=== PATIENT | female | born 1965 | race Caucasian/White ===

== ENCOUNTER 2018-02-17 16:55 | Emergency (ER) | payer MEDICAID ==
[~2018-02-17] VITALS: Ht 157.5 cm; Wt 76.2 kg
[2018-02-17 17:15] VITALS: Ht 157.5 cm; Wt 76.2 kg
[2018-02-17 20:27] VITALS: BP 161/84
== END 2018-02-17 20:27 | disposition home or self-care (01) ==
LOC: ED 16:55
DX: L02.214 Cutaneous abscess of groin (principal); N83.202 Unspecified ovarian cyst, left side; I10 Essential (primary) hypertension; E11.9 Type 2 diabetes mellitus without complications
CPT/HCPCS: 82962; J1815

== ENCOUNTER 2018-03-06 14:41 | Emergency (ER) | payer MEDICAID ==
[~2018-03-06] VITALS: Ht 157.5 cm; Wt 75.7 kg
[2018-03-06 15:03] VITALS: Ht 157.5 cm; Wt 75.7 kg
[2018-03-06 16:30] VITALS: BP 175/93
== END 2018-03-06 16:30 | disposition home or self-care (01) ==
LOC: ED 14:41
DX: N76.4 Abscess of vulva (principal)
CPT/HCPCS: J2001

== ENCOUNTER 2018-03-11 12:31 | Emergency (ER) | payer MEDICAID ==
[~2018-03-11] VITALS: Ht 154.9 cm; Wt 77.3 kg
[2018-03-11 12:42] VITALS: Ht 154.9 cm; Wt 77.3 kg
[2018-03-11 13:57] VITALS: BP 159/73
== END 2018-03-11 13:57 | disposition home or self-care (01) ==
LOC: ED 12:31
DX: Z02.79 Encounter for issue of other medical certificate (principal); I10 Essential (primary) hypertension; E11.9 Type 2 diabetes mellitus without complications

== ENCOUNTER 2018-07-18 19:40 | Emergency (ER) | payer OTHER ==
[~2018-07-18] VITALS: Ht 160 cm; Wt 75.3 kg
[2018-07-18 19:49] VITALS: Ht 160 cm; Wt 75.3 kg
[2018-07-18 23:24] VITALS: BP 145/92
== END 2018-07-18 23:24 | disposition home or self-care (01) ==
LOC: ED 19:40
DX: N76.0 Acute vaginitis (principal); I10 Essential (primary) hypertension; E11.9 Type 2 diabetes mellitus without complications; E78.00 Pure hypercholesterolemia, unspecified
CPT/HCPCS: J0696; J2001

== ENCOUNTER 2018-07-20 19:01 | Emergency (ER) | payer OTHER ==
[~2018-07-20] VITALS: Ht 160 cm; Wt 74.4 kg
[2018-07-20 19:18] VITALS: Ht 160 cm; Wt 74.4 kg
[2018-07-20 20:53] VITALS: BP 137/78
== END 2018-07-20 20:53 | disposition home or self-care (01) ==
LOC: ED 19:01
DX: N76.0 Acute vaginitis (principal); I10 Essential (primary) hypertension; E11.9 Type 2 diabetes mellitus without complications; E78.00 Pure hypercholesterolemia, unspecified